=== PATIENT | male | born 1995 | race Caucasian/White ===

== ENCOUNTER 2018-04-20 11:20 | Emergency (ER) | payer OTHER, BC ==
[2018-04-20 11:28] VITALS: TEMP 98.2; BMI 39.5
--- NOTE | 2018-04-20 11:57 | PDOC ---
History of Present Illness - General Chief Complaint: Redness To Affected Area Stated Complaint: SWELLING, LT ARM Time Seen by Provider: 04/20/18 11:35 History Source: Patient Exam Limitations: No Limitations - History of Present Illness Initial Comments: 04/20/18 11:53 Pt is a previously healthy 22yo m presenting to ED with complaints of L elbow pain and swelling x 1week. Pt does not recall any injuries to the elbow. Pt is able to range without pain but has pain with complete flexion and extension. He denies fever, chills, pain in other joints, history of joint problems, abdominal pain, n/v/d, headache, sore throat, recent illnesses, urinary symptoms. He does not take any medications. Denies history of STD. Works as a mechanical design technician PMD: [employer] PMH: none PSH: none Meds: none Allergies: nkda Social: denies Past History - Past Medical History Allergies/Adverse Reactions: Allergies Allergy/AdvReac Type Severity Reaction Status Date / Time No Known Allergies Allergy Verified 04/20/18 11:28 Home Medications: Ambulatory Orders Cephalexin Monohydrate [Keflex -] 500 mg PO Q6H #40 capsule 04/20/18 Sulfamethoxazole/Trimethoprim [Bactrim Ds -] 1 tab PO BID #20 tablet 04/20/18 COPD: No - Immunization History Immunization Up to Date: Yes - Suicide/Smoking/Psychosocial Hx Smoking History: Never smoked Hx Alcohol Use: No Drug/Substance Use Hx: No Substance Use Type: None *Physical Exam - Vital Signs Last Vital Signs Temp Pulse Resp BP Pulse Ox 98.2 F 81 18 183/76 H 99 04/20/18 11:26 04/20/18 11:26 04/20/18 11:26 04/20/18 11:26 04/20/18 11:26 - Physical Exam General Appearance: Yes: Nourished, Appropriately Dressed. No: Apparent Distress Musculoskeletal: positive: Other (L elbow ttp. No balloting. Full ROM without pain with passive or active ROM except with extreme flexion and extension) Integumentary: positive: Normal Color, Dry, Warm, Erythema (slight erythema over L elbow extending about 2 inches superior and 4 inches inferior. ), Swelling (over L elbow). negative: Petechiae, Rash Medical Decision Making - Medical Decision Making 04/20/18 11:57 Pt is a previously healthy 22yo m presenting to ED with complaints of L elbow pain and swelling x 1week. 04/20/18 12:52 repeat BP 144/89. *DC/Admit/Observation/Transfer Diagnosis at time of Disposition: Cellulitis Qualifiers: Site of cellulitis: extremity Site of cellulitis of extremity: upper extremity Laterality: left Qualified Code(s): L03.114 - Cellulitis of left upper limb - Discharge Dispostion Disposition: HOME Condition at time of disposition: Good Decision to Admit order: No - Prescriptions Prescriptions: Cephalexin Monohydrate [Keflex -] 500 mg PO Q6H #40 capsule Sulfamethoxazole/Trimethoprim [Bactrim Ds -] 1 tab PO BID #20 tablet - Referrals Referrals: Dg Schultz MD [Primary Care Provider] - - Patient Instructions Printed Discharge Instructions: DI for Cellulitis -- Adult Additional Instructions: You were seen here today for elbow swelling. You have a skin infection called cellulitis. You have been given two antibiotics: Keflex and Bactrim Take Keflex 3 more times today, preferably 6 hours apart and take Bactrim one other time today, preferably in 12 hours. Otherwise you take Keflex 4 times per day and Bactrim taken twice daily. You can take Tylenol or ibuprofen for pain as needed. Apply lotion to your elbow to keep it moisturized and prevent cracking. Vaseline works too. Make sure that when you are working you keep your skin clean and dry. Cover up any open wounds or cuts. Come back to the emergency room if pain gets worse, swelling gets worse, you are unable to move your elbow or if any new concerning symptom develops. Thank you - Post Discharge Activity
--- NOTE | 2018-04-20 12:26 | PDOC ---
Attending Attestation - Resident Resident Name: Maddie Hidalgo - ED Attending Attestation I have performed the following: I have examined & evaluated the patient, The case was reviewed & discussed with the resident, I agree w/resident's findings & plan, Exceptions are as noted - HPI HPI: 22 yo M presents with L elbow swelling since yesterday. Denies fever, chills, skin lesions. He states he is able to fully range the elbow without difficulty. No trauma. - Physicial Exam PE: GENERAL: Awake, alert, and fully oriented, in no acute distress HEAD: No signs of trauma EYES: PERRLA, EOMI, sclera anicteric, conjunctiva clear ENT: Auricles normal inspection, hearing grossly normal, nares patent, oropharynx clear without exudates. Moist mucosa NECK: Normal ROM, supple, no lymphadenopathy, JVD, or masses LUNGS: Breath sounds equal, clear to auscultation bilaterally. No wheezes, and no crackles HEART: Regular rate and rhythm, normal S1 and S2, no murmurs, rubs or gallops ABDOMEN: Soft, nontender, normoactive bowel sounds. No guarding, no rebound. No masses EXTREMITIES: L elbow with warmth, swelling to the skin. No open lesions, however , there is cracking of the skin to the dorsal elbow. No fluctuance. FROm. Remainder of extremities with normal range of motion, no edema. No clubbing or cyanosis. No cords, erythema, or tenderness NEUROLOGICAL: Cranial nerves II through XII grossly intact. Normal speech, normal gait SKIN: Warm, Dry, normal turgor, no rashes or lesions noted. - Medical Decision Making Sxs consistent with cellulitis. Septic joint unlikely, as there is no pain with ROM. Bursitis unlikely as there is no pain with movement, as well.
[2018-04-20] MEDS ORDERED: SULFAMETHOXAZOLE/TRIMETHOPRIM 800MG/160MG D.S. TABLET PO ONE (12:33)
[2018-04-20] MEDS ORDERED: CEPHALEXIN MONOHYDRATE 500 MG CAPSULE (UD) PO ONE (12:33)
[2018-04-20 12:36] VITALS: BP 144/89
[2018-04-20] MEDS ORDERED: CEPHALEXIN MONOHYDRATE 500 MG CAPSULE (UD) ONE (12:41)
[2018-04-20] MEDS ORDERED: SULFAMETHOXAZOLE/TRIMETHOPRIM 800MG/160MG D.S. TABLET ONE (12:41)
[2018-04-20 13:15] VITALS: PULSE 79
== END 2018-04-20 13:15 | disposition home or self-care (01) ==
LOC: JER 11:20
DX: L03.114 Cellulitis of left upper limb (principal)
CPT/HCPCS: 73070-TC-LT-FY; 99281-25